=== PATIENT | female | born 1975 | race Caucasian/White ===

== ENCOUNTER 2016-08-29 11:34 | Day surgery (SDC) | payer OTHER ==
[~2016-08-29] VITALS: Ht 154.9 cm; Wt 56.4 kg
[2016-08-29 12:12] VITALS: BP 106/63; PULSE 70; TEMP 98.1
[2016-08-29] MEDS ORDERED: MIRENA52 MG IY (12:21)
[2016-08-29 14:22] VITALS: BP 113/65; PULSE 76
== END 2016-08-29 14:30 | disposition home or self-care (01) ==
LOC: SDCO 11:34
DX: K59.00 Constipation, unspecified (principal); K62.89 Other specified diseases of anus and rectum; K64.0 First degree hemorrhoids
CPT/HCPCS: J2250; J3010; J7030

== ENCOUNTER → 2018-05-03 | Outpatient (CLI) | payer OTHER ==
[2005-07-20 18:49] VITALS: TEMP 98.9
[~2018-05-03] MED LIST: MIRENA52 MG IY
== END ==
LOC: MC.RAD 14:09
DX: N63.21 Unspecified lump in the left breast, upper outer quadrant (principal)
CPT/HCPCS: G0279